=== PATIENT | male | born 1935 | race Hispanic/Latino ===

== ENCOUNTER 2018-07-20 15:06 | Emergency (ER) | payer MEDICARE, MEDICAID ==
[2018-07-20 16:29] LABS: #Eosinphils 0.5 thou/uL (0.0-0.7); #Lymphocytes 3.2 thou/uL (1.20-3.40); #Monocytes 0.6 thou/uL (0.11-0.59); #Neutrophils 2.7 thou/uL (1.40-6.50); %Basophils 0.5 % (0.0-1.0); %Eosinophils 6.7 % (0.0-10.0); %Lymphocytes 45.4 % (21.0-51.0); %Monocytes 8.5 % (0.0-10.0); %Neutrophils 38.9 % (42.0-75.0); Hemoglobin 13.3 g/dL (14.0-18.0); Mean Corpuscular HGB CONC 33.2 g/dL (32.0-36.0); Mean Corpuscular Hemoglobin 32.2 pg (27.0-31.0); Mean Corpuscular Volume 96.9 fL (78.0-98.0); Mean Platelet Volume 8.8 fL (7.4-10.4); Platelet Count 172 thou/uL (130-400); Red Blood Cell (RBC) Count 4.15 mill/uL (4.70-6.10)
[2018-07-20 16:35] LABS: Bilirubin Small (Negative); Blood, Urine Negative (Negative); Clarity CLEAR (Clear); Glucose, Urine (Dipstick) Negative (Negative); Leukocyte Negative (Negative); Nitrite Negative (Negative); Protein, Urine (Dipstick) Negative (Neg-Trace); Specific Gravity, Urine 1.025 (1.002-1.036)
[2018-07-20 16:47] LABS: ALT (SGPT) 12 U/L (8-55); AST (SGOT) 14 U/L (5-34); Albumin 3.5 g/dL (3.4-4.8); Alkaline Phosphatase 80 U/L (40-150); Anion Gap 14 mmol/L (10-20); BUN (Urea Nitrogen) 29 mg/dL (8.4-25.7); Bilirubin, Total 0.5 mg/dL (0.2-1.2); Calc. Creatinine Clearance 0 mL/min (70-130); Calcium 9.2 mg/dL (7.8-10.44); Carbon Dioxide 24 mmol/L (23-31); Chloride 109 mmol/L (98-107); Estimated GFR-MDRD 44; Globulin 2.9 g/dL (2.4-3.5); Glucose 107 mg/dL (83-110); Potassium 4.5 mmol/L (3.5-5.1); Protein, Total 6.4 g/dL (5.8-8.1); Sodium 142 mmol/L (136-145)
== END 2018-07-20 17:23 | disposition home or self-care (01) ==
LOC: ERS 15:06
DX: K59.00 Constipation, unspecified (principal); I10 Essential (primary) hypertension; F03.90 Unspecified dementia, unspecified severity, without behavioral disturbance, psychotic disturbance, mood disturbance, and anxiety; Z87.891 Personal history of nicotine dependence
CPT/HCPCS: 36415; 80053; 81003; 85025; 99283

== ENCOUNTER 2018-08-10 11:33 | Inpatient (IN) | payer MEDICARE, MEDICAID ==
[~2018-08-10 11:33] MED LIST: ISOVUE-370 76%-LOCM 1 ML ONE
--- NOTE | 2018-08-10 12:04 | RAD ---
XR Chest 1 View Portable History: Chest pain. Stroke alert. Comparison: None. Findings: Mild increased peripheral interstitial interstitial markings. No pneumothorax. No effusion. No acute osseous abnormality. Cardiac size is normal. Impression: Chronic peripheral scarring. No acute intrathoracic abnormality.
[2018-08-10 12:18] LABS: #Basophils 0.1 thou/uL (0.0-0.2); #Eosinphils 0.3 thou/uL (0.0-0.7); #Lymphocytes 1.9 thou/uL (1.20-3.40); #Monocytes 0.5 thou/uL (0.11-0.59); #Neutrophils 8.1 thou/uL (1.40-6.50); %Basophils 0.5 % (0.0-1.0); %Eosinophils 2.7 % (0.0-10.0); %Lymphocytes 17.2 % (21.0-51.0); %Monocytes 4.4 % (0.0-10.0); %Neutrophils 75.3 % (42.0-75.0); Hemoglobin 15.1 g/dL (14.0-18.0); Mean Corpuscular HGB CONC 33.9 g/dL (32.0-36.0); Mean Corpuscular Hemoglobin 32.8 pg (27.0-31.0); Mean Platelet Volume 8.5 fL (7.4-10.4); Platelet Count 220 thou/uL (130-400); RBC Distribution Width 12.9 % (11.5-14.5); Red Blood Cell (RBC) Count 4.59 mill/uL (4.70-6.10); White Blood Cell (WBC) Count 10.8 thou/uL (4.8-10.8)
--- NOTE | 2018-08-10 12:22 | CT ---
CT BRAIN NONCONTRAST: DATE: 08/10/2018 HISTORY: 83-year-old male with acute stroke symptoms: Dysarthria and left upper extremity weakness Stroke alert protocol extension [id number] called called, but no answer COMPARISON: None FINDINGS: There is no evidence of acute intra-axial or extra-axial hemorrhage. There is no midline shift or any other mass effect. There is no extra-axial fluid collection. There is no evidence of obstructive hydrocephalus. Calvarium is intact. There is a moderate size region of encephalomalacia and gliosis i nvolving the right occipital lobe. There are numerous tiny old lacunar infarctions in the bilateral thalami, midbrain, jose antonio, basal ganglia, and internal and external capsules. There is diffuse brain pa renchymal volume loss. There are low attenuation areas in the white matter. These are nonspecific, but in a patient of this age, they are probably chronic ischemic white matter changes due to microvas cular atherosclerosis. IMPRESSION: 1) No acute intracranial findings. 2) moderate-sized old infarction in the right posterior cerebral artery territory. 3) large number of tiny old lacunar infarctions in the bilateral corpus striatum, thalami, and brains tem. 4) involutional changes and chronic ischemic white matter changes.
[2018-08-10 12:24] LABS: PTT 27.7 SEC (22.9-36.1); Prothrombin Time 13.7 SEC (12.0-14.7)
[2018-08-10 12:41] LABS: ALT (SGPT) 15 U/L (8-55); AST (SGOT) 15 U/L (5-34); Albumin 3.9 g/dL (3.4-4.8); Alkaline Phosphatase 90 U/L (40-150); Anion Gap 14 mmol/L (10-20); BUN (Urea Nitrogen) 24 mg/dL (8.4-25.7); Bilirubin, Total 0.6 mg/dL (0.2-1.2); CK (CPK) 115 U/L (30-200); Calc. Creatinine Clearance 0 mL/min (70-130); Calcium 9.7 mg/dL (7.8-10.44); Carbon Dioxide 25 mmol/L (23-31); Chloride 104 mmol/L (98-107); Estimated GFR-MDRD 43; Globulin 3.1 g/dL (2.4-3.5); Glucose 142 mg/dL (83-110); Sodium 139 mmol/L (136-145)
--- NOTE | 2018-08-10 12:50 | CT ---
CT ANGIOGRAM BRAIN WITH CONTRAST CT ANGIOGRAM NECK WITH CONTRAST: DATE: 08/10/2018 HISTORY: 83-year-old male with acute stroke symptoms: Dysarthria and left-sided weakness. This stroke alert protocol report called to Dr. Gay of the emergency Department at 12:46 PM on 12/2018 TECHNIQUE: After IV contrast injection, arterial bolus chasing technique scan performed from ivy to vertex of head Coronal and sagittal 3-D MIP reconstructions. FINDINGS: There is a tiny 3 mm intracranial aneurysm from the distal portion of the A2 segment of the left ante rior cerebral artery, which crosses over to the right side because of tortuosity. Atherosclerotic irregularity of [place] arteries. Heavy atherosclerotic calcification of carotid siphons ro ing it difficult to evaluate luminal caliber. Otherwise no high-grade focal short segment stenosis. Moderate stenosis of left MCA. No thrombosis or occlusion of M1 segments of MCA's. Incidental finding of fenestrated basilar artery. No occlusion or high-grade short segment acquired stenosis of bilateral vertebral arteries, brachiocephalic artery, bilateral subclavian arteries, bilateral common carotid arteries,. Heavy atherosclerotic calcified plaque at bilateral carotid bulbs severe stenosis, estimated 75-80% at origin of right internal carotid. No high-grade stenosis at origin of l eft internal carotid. Estimated focal 50% stenosis at the distal common carotid on the left at the carotid bulb. IMPRESSION: 1) no middle cerebral artery M1 segment thrombosis. 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 3) severe stenosis at origin of right internal carotid. 4) extensive atherosclerotic disease of all vessels of neck.
[2018-08-10] MEDS ORDERED: Aspirin Chewable 81 MG TAB ONE (14:28)
[2018-08-10 16:03] VITALS: BMI 27.8
[2018-08-10] MEDS ORDERED: Ondansetron ODT 4 MG TAB PO PRN (16:10)
[2018-08-10] MEDS ORDERED: Acetaminophen 325 MG TAB PO PRN (16:10)
[2018-08-10] MEDS ORDERED: Labetalol HCl 100 MG/20 ML VIAL SLOW IVP PRN (16:16)
[2018-08-10] MEDS ORDERED: hydrALAZINE 20 MG/ML VIAL SLOW IVP PRN (16:16)
--- NOTE | 2018-08-10 17:42 | HP ---
PRIMARY CARE PROVIDER: Selin De Paz. Referred to the [facility] by [facility] for a stroke. HISTORY OF PRESENT ILLNESS: The history obtained from the daughter, who is at bedside. The patient is Albanian-speaking only, has dementia and is a poor historian to boot. The patient walks with a cane. He came to breakfast this morning, was eating his breakfast and all of a sudden while before he finished breakfast, he just collapsed. He was following directions poorly. He was sleepy like, no jerking or seizure activity. After daughter arrived, he still responded very slowly. He was pale initially. His blood pressure was 74/ 64, 68 of pulse with 124 blood sugar. revenue director arrive. He was brought to the hospital by the daughter, Megan Upton states that he is in his normal mental status at the present time. PAST MEDICAL HISTORY: CVA 7 years ago x2. He was left with a loss of vision in his left eye, otherwise normal. He has dementia on multiple medications, hypertension, benign prostatic hypertrophy. CURRENT MEDICATIONS: 1. Meloxicam 7.5 mg a day. 2. Flomax 0.4 mg a day. 3. Donepezil 5 mg a day. 4. Memantine 10 mg twice a day. 5. Lisinopril 20 mg a day. 6. Lorazepam 0.5 mg twice a day. 7. Avodart 0.5 mg a day. ALLERGIES: NO KNOWN DRUG ALLERGIES. PAST SURGICAL HISTORY: He has had inguinal hernia repair. FAMILY HISTORY: No strokes. No diabetes mellitus or coronary artery disease. SOCIAL HISTORY: He is , but he and his live in different locations due to medical problems. He is DNR status DNAR status, confirmed by Megan Blank Alexsandra, his daughter. She states they have the appropriate documentation. No tobacco. No alcohol. REVIEW OF SYSTEMS: Unobtainable because of his dementia, etc. He is awake, follows directions poorly. PHYSICAL EXAMINATION: VITAL SIGNS: His blood pressure in the ER ranged from 129/68 to 139/108, blood sugar was 128, his pulse is 87 to 94, respirations 16, and temperature 97.9. HEENT: Examination of his head, eyes, ears, nose, and throat revealed minimal pupillary response at best. Pupils were equal and round. Extraocular movements were grossly intact. Sclerae are white. Tympanic membranes are clear. Nose is clear. Mouth is adequate oral hygiene, moist. NECK: No jugular venous distention, adenopathy, or thyromegaly. CHEST: Clear to auscultation and percussion. HEART: Regular rate and rhythm. First and second heart sounds were clear. No murmurs or gallops were appreciated. ABDOMEN: Soft. Bowel sounds are normal. No hepatosplenomegaly. No masses or rebound. EXTREMITIES: No cyanosis, clubbing, or edema. PULSES: Carotid, radial, femoral, and dorsalis pedis pulses symmetric. SKIN: Warm and dry. LYMPHATIC SURVEY: Reveals no tender or swollen lymph nodes in the neck, groin, or under his arms. NEUROLOGIC: He is blind in the left eye. Minimal pupillary reflexes. Face is symmetric. Neurological exam of his extremities was done difficulty, but his toes were neutral. His strength appeared to be symmetrical. Deep tendon reflexes appeared to be symmetrical. LABORATORY DATA: CBC was unremarkable with hemoglobin 15.1, white count of 10.8 , platelet count of 229,000. INR was 1.0. Comprehensive metabolic profile had an elevated creatinine at 1.56, consistent with chronic kidney disease, stage 3. Blood sugar was 124. Liver profile was normal. Lytes were normal. His all laboratory done 10/21/2017 shows creatinine 1.37, confirming chronic kidney disease stage 3 as opposed to acute kidney injury. His brain CT revealed no acute findings. There is old right posterior cerebellar artery stroke and some lacunar infarctions, but this explains his stroke with loss of vision. CT was reviewed by me. Chest x-ray, no cardiomegaly, CHF, or infiltrate reviewed by me. CT of the [place], he has moderate stenosis of the left, middle cerebral artery. He has severe stenosis of the origin the right internal carotid. ASSESSMENT: 1. stroke, thrombotic. 2. Severe right internal carotid artery stenosis. 3. History of cerebrovascular accident in the past with blindness of the left eye. 4. Chronic kidney disease, stage 3. 5. Hypertension. 6. BPH. PLAN: 1. Aspirin. 2. MRI of the brain. After obtaining the MRI, we will obtain a vascular surgery consult for right carotid endarterectomy. I have discussed this in the DNAR status with Megan Hallman, his daughter. She expresses understanding of our conversations. Job ID: [id number] [facility]
[2018-08-10] MEDS ORDERED: Tamsulosin HCl 0.4 MG CAP PO SCH (21:00)
[2018-08-11 05:27] LABS: #Eosinphils 0.4 thou/uL (0.0-0.7); #Lymphocytes 3.1 thou/uL (1.20-3.40); #Monocytes 0.6 thou/uL (0.11-0.59); #Neutrophils 4.5 thou/uL (1.40-6.50); %Basophils 0.5 % (0.0-1.0); %Eosinophils 5.1 % (0.0-10.0); %Lymphocytes 35.7 % (21.0-51.0); %Monocytes 6.5 % (0.0-10.0); %Neutrophils 52.1 % (42.0-75.0); Hemoglobin 13.7 g/dL (14.0-18.0); Mean Corpuscular HGB CONC 33.8 g/dL (32.0-36.0); Mean Corpuscular Hemoglobin 32.7 pg (27.0-31.0); Mean Corpuscular Volume 96.7 fL (78.0-98.0); Mean Platelet Volume 8.6 fL (7.4-10.4); Platelet Count 203 thou/uL (130-400); Red Blood Cell (RBC) Count 4.18 mill/uL (4.70-6.10); White Blood Cell (WBC) Count 8.6 thou/uL (4.8-10.8)
[2018-08-11 05:50] LABS: Anion Gap 12 mmol/L (10-20); BUN (Urea Nitrogen) 25 mg/dL (8.4-25.7); Calc. Creatinine Clearance 39 mL/min (70-130); Calcium 9.1 mg/dL (7.8-10.44); Carbon Dioxide 22 mmol/L (23-31); Cardiac Risk 4.9 (Less than 4.5); Chloride 106 mmol/L (98-107); Cholesterol 167 mg/dl (< 200 Desired); Estimated GFR-MDRD 49; Glucose 90 mg/dL (83-110); HDL Cholesterol 34 mg/dL (>60 Neg Risk); LDL Cholesterol, Calculated 112 mg/dL; Potassium 4.8 mmol/L (3.5-5.1); Sodium 135 mmol/L (136-145); Triglycerides 106 mg/dL (Less than 150)
[2018-08-11] MEDS ORDERED: Aspirin 325 mg Enteric Coated Tablet PO SCH (09:00)
[2018-08-11] MEDS ORDERED: Lisinopril 20 MG TAB PO SCH (09:00)
[2018-08-11 11:36] VITALS: TEMP 97.5
--- NOTE | 2018-08-11 11:48 | PDOC.PN ---
- Subjective Encounter Start Date: 08/11/18 Encounter Start Time: 11:30 Mr. Whaley was seen today in follow-up of syncope. His daughter is at bedside, and says he seems to be about baseline. His left side of the face is a bit drooped, but she can not remember if it was like this before. - Objective Resuscitation Status - Order Detail: 08/10/18 16:43 Resuscitation Status Routine Resuscitation Status: FULL: Full Resuscitation MAR Reviewed: Yes Vital Signs & Weight: Vital Signs (12 hours) Temp Pulse Pulse Resp BP BP BP 08/11/18 11:36 97.5 F L 79 16 122/61 08/11/18 09:05 72 111/59 L 08/11/18 08:14 126/78 08/11/18 07:48 97.6 F 77 16 126/78 08/11/18 04:10 98.1 F 86 16 96/63 08/10/18 23:47 98.8 F 92 18 137/75 Pulse Ox 08/11/18 11:36 97 08/11/18 09:05 08/11/18 08:14 96 08/11/18 07:48 96 08/11/18 04:10 94 L 08/10/18 23:47 93 L Weight Weight 147 lb I&O: 08/10/18 08/11/18 08/12/18 06:59 06:59 06:59 Intake Total 340 Balance 340 Result Diagrams: 08/11/18 05:00 08/11/18 05:00 Additional Labs: Accuchecks 08/10/18 11:45 POC Glucose 124 H Phys Exam - Physical Examination HEENT: PERRLA, sclera anicteric Respiratory: no wheezing, no rales, no rhonchi, clear to auscultation bilateral Cardiovascular: RRR, no significant murmur, no rub Gastrointestinal: soft, non-tender, no distention, positive bowel sounds Musculoskeletal: no edema, pulses present Neurological: normal sensation, moves all 4 limbs + left upper and lower extremity neglect, and mild left facial droop Dx/Plan (1) Syncope Code(s): R55 - SYNCOPE AND COLLAPSE Status: Acute (2) Hypertension Code(s): I10 - ESSENTIAL (PRIMARY) HYPERTENSION Status: Chronic (3) CKD (chronic kidney disease), stage III Code(s): N18.3 - CHRONIC KIDNEY DISEASE, STAGE 3 (MODERATE) Status: Chronic - Plan * Possible CVA- await MRI results * CTA- demonstrated significant stenosis at the origin of the right ICA- will consult NS * HTN- blood pressure is stable * CKD- stable.
[2018-08-11 12:29] VITALS: BP 125/60
--- NOTE | 2018-08-11 14:20 | CON ---
DATE OF CONSULTATION: HISTORY OF PRESENT ILLNESS: This is an 83-year-old gentleman with dementia, followed by Dr. Katy De Paz at the [facility]. He was at breakfast yesterday, sitting in the chair and one of his granddaughters walked past him and noticed his head was tilted to the side and he was very lethargic. She called her mother, who then checked the blood pressure and found it to be about 70 with a normal blood sugar, and subsequent ER blood pressure was about 120. He would not open his eyes on command, but was trying to speak with yes or no answers and nodding of his head. The family did not notice lateralizing symptoms either right or left-sided weakness. He evidently has had a previous occipital stroke when the family says he cannot see out of his left eye and will turn his whole head and body when he wants to look to the left. PAST MEDICAL HISTORY: Includes hypertension, dementia, and some obstructive lower urinary tract symptoms. He has no cardiac history. SOCIAL HISTORY: He is , but does not live with his . He is accompanied by his daughter today. MEDICATIONS: Prior to admission included; 1. Meloxicam. 2. Flomax. 3. Donepezil. 4. Memantine. 5. Lisinopril 20. 6. Lorazepam for anxiety related to his dementia. 7. Avodart. ALLERGIES: NONE KNOWN. PAST SURGICAL HISTORY: Inguinal hernia repair. PHYSICAL EXAMINATION: GENERAL: He is an elderly gentleman, who is eating his lunch at the present time and is focused on that. He eats using his right hand for utensils. He occasionally coughs while eating. He is constantly chewing. NECK: He has significant cervical arthritis with limitation in extension and flexion. CARDIAC: Distant heart sounds. No murmurs. LUNGS: Clear to auscultation anteriorly. ABDOMEN: Nontender. EXTREMITIES: He has no peripheral edema. He has no palpable pedal pulses. Extremity strength, he can push, dorsiflex and plantar flex his feet without any discernible weakness. Upper extremity strength appears intact. He follows commands, but is not really speaking at this time. ASSESSMENT AND PLAN: I have reviewed his CT scan and he does have bilateral calcified plaque in his carotid bulbs and internal carotid arteries. The right internal carotid artery does appear to have severe stenosis at least in two views. At this time, we will write the results of the MRI study. We will discuss further whether surgical intervention is appropriate for him after I see the MRI scan. In any event, this would be considered elective surgery and he could be discharged home to follow up with me for scheduling if we elect to do the surgical intervention. Job ID: [id number]
--- NOTE | 2018-08-11 16:01 | MRI ---
Brain MRI without contrast: 08/11/2018 COMPARISON: None HISTORY: Dementia, stroke, altered mental status TECHNIQUE: Multiplanar multisequence MR imaging of the brain is obtained without contrast FINDINGS: The diffusion weighted imaging demonstrates no evidence for acute infarction. The axial gradient echo imaging demonstrates scattered foci of blooming artifact within the basal latia glia bilaterally and within the bilateral cerebellar hemispheres, suggesting foci of chronic microhemorrhage on the basis of remote ischemia or hypertension. Nonspecific mastoid effusion noted on the left. Motion limits detailed assessment, particularly on the axial T2-weighted sequence. Arterial flow voids at the axial level of the skull base appear grossly unremarkable on the T2-weight ed imaging. There is significant diffuse cerebral volume loss with associated prominence of the CSF containing sp aces. There is extensive periventricular, deep, and subcortical white matter hypodensity, evidence of small vessel disease. Encephalomalacia within the occipital lobe on the right is consistent with a remote right WELDER FITTER HELPER infarction. IMPRESSION: Chronic findings as detailed above. No evidence for acute infarction.
--- NOTE | 2018-08-11 18:07 | CON ---
DATE OF CONSULTATION: 08/11/2018 CONSULTING PHYSICIAN: Hospitalist Service. IMPRESSION: Near syncopal episode. PLAN: Discharge at your discretion. HISTORY OF PRESENT ILLNESS: Mr. Whaley is an 83-year-old gentleman, who was at home eating breakfast and at the table. His daughter reports that he suddenly slumped over, looking quite weak all over. He never lost consciousness, but would respond to them in a very weak fashion. His color turned quite pale. She checked his blood pressure and found it to be 60/50. EMS was called and he was brought in. He had a CT of the brain, which showed an old right posterior cerebral artery stroke. His CT angiogram showed a 70% to 80% stenosis on the right and a 50% on the left. There is a 3 mm left anterior cerebral artery aneurysm present. He has returned to his baseline. He had an MRI since admission, which showed chronic ischemic changes, but no acute stroke. LABORATORY STUDIES: Included a CBC, coags, and chemistry panel all of which were unremarkable. His cholesterol ratio was 4.9. PAST MEDICAL HISTORY: Hypertension and diabetes. ALLERGIES: NONE. MEDICATIONS: Medication list was reviewed. FAMILY HISTORY: Noncontributory. REVIEW OF SYSTEMS: Ten-system review of systems is otherwise negative. PHYSICAL EXAMINATION: GENERAL: He is a thin elderly gentleman, sitting in the bed, in no acute distress. VITAL SIGNS: Blood pressure 111/59 while lying down. Temperature 97.5, pulse 79, respirations 16. HEENT: Pupils are equal and reactive. Conjunctivae clear. Oropharynx clear. NECK: Supple. No lymphadenopathy. EXTREMITIES: No cyanosis, clubbing, or edema. NEUROLOGIC: He is alert and cooperative. He followed commands appropriately. His speech is fluent in Samoan. There is no dysarthria present. Cranial nerves are intact. Motor exam showed equal strength with antigravity strength bilaterally. There is no fix or drift. No tremor or dysmetria is present. Sensation is intact to light touch. SUMMARY: This is an elderly gentleman, who presented with a near syncopal episode documented low blood pressure. There are no acute neurologic issues found. Given his age and overall picture, I would not recommend anything be done with the right carotid stenosis other than maximum medical therapy. I will continue aspirin and a statin. Job ID: [id number]
--- NOTE | 2018-08-12 04:59 | DIS ---
DATE OF ADMISSION: 08/10/2018 DATE OF DISCHARGE: 08/11/2018 PRIMARY CARE PHYSICIAN: Selin De Paz, DRAFTSPERSON-C DISCHARGE DIAGNOSES: 1. Altered mental status, possible due to hypotension. 2. Cerebrovascular disease. 3. Hypertension. 4. BPH. 5. Dementia. DISCHARGE MEDICATIONS: These will be the same and include: 1. Flomax 0.4 mg daily. 2. [place]-3 fish oil one capsule daily. 3. Namenda 10 mg twice daily. 4. Meloxicam 7.5 mg daily. 5. Lorazepam 0.5 mg q.12. 6. Lisinopril 20 mg daily. 7. Iron sulfate 325 mg daily. 8. Dutasteride 0.5 mg daily. 9. Aricept 5 mg at bedtime. 10. Vitamin D3 of 1000 units daily. 11. Sertraline 10 mg daily. 12. Aspirin 81 mg a day. PROCEDURES DONE DURING THE ADMISSION: The patient had a CT scan of the brain, which was negative for any acute findings. There was a moderate-sized old infarct in the right posterior cerebral artery territory and a large number of tiny lacunar infarcts in the bilateral corpus striatum to rami and brainstem. The patient also had an MRI of the brain in which there was chronic findings, but no evidence of any acute infarct. The patient also had a CT angio of the neck and [place], showing severe stenosis at the origin of the right internal carotid artery. CODE STATUS: Full code. ALLERGIES: NO KNOWN DRUG ALLERGIES. HOSPITAL COURSE: Mr. Whaley is a pleasant 83-year-old gentleman, who presented to the emergency room after he suffered a syncopal episode at home. It is thought that this was likely related to hypotension. However, there was concern for possible stroke and CT angio was done as well as CT of the brain. He was known to have significant stenosis at the origin of the right internal carotid artery. For this reason, Vascular Surgery was consulted and he suggested that the patient can have this further evaluated as an outpatient since the MRI results were negative. The patient was clinically stable at the time of discharge and as such will be discharged home today, and to have close followup with Dr. Ross in approximately 1 to 2 weeks and also with Selin De Paz. Job ID: [id number]
== END 2018-08-11 18:31 | disposition home health service (06) | DRG 316 ==
LOC: EDBD → ERS 11:33 → 2SE 14:10 → OBSVTOIN 16:10 → MERGE 16:10
PROVIDERS: ADMIT Internal Medicine; ATTEND Internal Medicine
DX: I95.9 Hypotension, unspecified (principal); I65.21 Occlusion and stenosis of right carotid artery; I69.398 Other sequelae of cerebral infarction; I12.9 Hypertensive chronic kidney disease with stage 1 through stage 4 chronic kidney disease, or unspecified chronic kidney disease; N18.3 Chronic kidney disease, stage 3 (moderate); N40.0 Benign prostatic hyperplasia without lower urinary tract symptoms; F03.90 Unspecified dementia, unspecified severity, without behavioral disturbance, psychotic disturbance, mood disturbance, and anxiety; E11.22 Type 2 diabetes mellitus with diabetic chronic kidney disease
CPT/HCPCS: 36415; 36416; 70450; 70496; 70498; 70551; 71045; 80048; 80053; 80061; 82550; 84484; 85025; 85610; 85730; 93005

== ENCOUNTER 2018-11-27 12:01 | Observation (INO) | payer MEDICARE, MEDICAID ==
--- NOTE | 2018-11-27 13:09 | RAD ---
Exam: Chest one view HISTORY:Weakness. Altered mental status. Baseline dementia Comparison: 08/10/2018 FINDINGS: Cardiac silhouette: Normal Aorta: Atherosclerosis and elongation of the aorta Pulmonary vessels: Normal Costophrenic angles: Clear LUNGS: Diminished lung volumes. Chronic changes. No masses or consolidation. Pneumothorax: None Osseous abnormalities: None IMPRESSION: 1. Atherosclerosis and elongation aorta. 2. Diminished lung volume with chronic changes.
--- NOTE | 2018-11-27 13:50 | CT ---
HEAD CT WITHOUT CONTRAST: Date: 11/27/18 COMPARISON: 08/10/18. HISTORY: Weakness, shakiness, altered mental status. TECHNIQUE: Axial CT imaging at 5 mm intervals from vertex through skull base without contrast. FINDINGS: The imaged paranasal sinuses and mastoid air cells are well aerated. No displaced calvarial fracture is noted. There is atherosclerotic calcification of the cavernous carotid arteries and distal vertebral arterie s. There is moderate diffuse cerebral volume loss with associated prominence of the CSF-containing space s. Extensive periventricular, deep, and subcortical white matter hypodensity is present, evidence of small vessel disease. Stable prior lacunar infarctions is noted within the basal ganglia and thalamus on the left. There is evidence of prior posterior right occipital infarction. IMPRESSION: Extensive chronic findings as detailed above. No intracranial hemorrhage. POS: OFF
[2018-11-27 13:52] LABS: #Basophils 0.1 thou/uL (0.0-0.2); #Eosinphils 0.7 thou/uL (0.0-0.7); #Lymphocytes 3.3 thou/uL (1.20-3.40); #Monocytes 0.5 thou/uL (0.11-0.59); #Neutrophils 5.4 thou/uL (1.40-6.50); %Basophils 0.6 % (0.0-1.0); %Eosinophils 6.6 % (0.0-10.0); %Monocytes 5.2 % (0.0-10.0); %Neutrophils 54.6 % (42.0-75.0); Hemoglobin 14.4 g/dL (14.0-18.0); Mean Corpuscular HGB CONC 33.8 g/dL (32.0-36.0); Mean Corpuscular Volume 97.6 fL (78.0-98.0); Mean Platelet Volume 8.7 fL (7.4-10.4); Platelet Count 201 thou/uL (130-400); RBC Distribution Width 12.7 % (11.5-14.5); Red Blood Cell (RBC) Count 4.37 mill/uL (4.70-6.10); White Blood Cell (WBC) Count 9.9 thou/uL (4.8-10.8)
[2018-11-27 14:14] LABS: ALT (SGPT) 18 U/L (8-55); AST (SGOT) 44 U/L (5-34); Albumin 3.5 g/dL (3.4-4.8); Alkaline Phosphatase 87 U/L (40-110); Anion Gap 13 mmol/L (10-20); BUN (Urea Nitrogen) 31 mg/dL (8.4-25.7); Calc. Creatinine Clearance 0 mL/min (70-130); Carbon Dioxide 26 mmol/L (23-31); Chloride 104 mmol/L (98-107); Estimated GFR-MDRD 47; Globulin 2.9 g/dL (2.4-3.5); Glucose 95 mg/dL (83-110); Magnesium 1.9 mg/dL (1.6-2.6); Potassium 4.5 mmol/L (3.5-5.1); Protein, Total 6.4 g/dL (5.8-8.1); Sodium 138 mmol/L (136-145)
[2018-11-27] MEDS ORDERED: Senokot S 8.6-50 MG TAB PO PRN (16:44)
[2018-11-27] MEDS ORDERED: Acetaminophen 325 MG TAB PO PRN (16:44)
[2018-11-27] MEDS ORDERED: Sodium Chloride 0.9% 1,000 ML IV SCH (16:45)
[2018-11-27 18:19] VITALS: BMI 27.6
[2018-11-27] MEDS ORDERED: Meloxicam 7.5 MG TAB PO PRN (18:46)
[2018-11-27] MEDS ORDERED: Lorazepam 0.5 MG TAB PO PRN (18:46)
--- NOTE | 2018-11-27 18:58 | HP ---
PRIMARY CARE PHYSICIAN: Selin De Paz, IS MANAGER-C CHIEF COMPLAINT: Weakness to one side. HISTORY OF PRESENT ILLNESS: Mr. Whaley is an 83-year-old man, who was brought in to his primary care office today after daughter noticed yesterday that he had profound weakness. Normally, she says he helps her get him up, stand him up, and he is able to help her get him undressed and shower, and yesterday, he was unable to do this. She says that usually when he walks with a walker, he slumps over a little, but she said he was profoundly slumping over the walker to walk in. When he was sitting in a chair, he was on to the left side, and when she says she tries to straighten him up, he tells her to stop doing that because he feels like he is going to fall. 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 He also had BPH. Workup here with a creatinine of 1.44 and BUN of 31, which is pretty much at baseline for this patient. Chest x-ray shows atherosclerosis, elongated aorta, diminished lung volume with chronic changes. The patient also had a brain CT today, which showed extensive chronic findings, stable prior lacunar infarction noted within the basal ganglia and thalamus on the left, evidence of a prior posterior right occipital infarction. The patient was seen here in August for similar complaints and was recommended to follow up with Dr. Ross for some stenosis that was noted in the left carotid. Daughter reports that they did that about a month ago and Dr. Ross said that the stenosis is not remarkable enough to do surgery. The patient will be admitted to the telemetry observation unit for further management. Daughter reports interest in potential rehab if he is a candidate to help him get back to his baseline and being able to help her and use a walker and get around the house. PAST MEDICAL HISTORY: 1. 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 2. Dementia, on multiple medications. 3. Hypertension. 4. Benign prostatic hypertrophy. ALLERGIES: NO KNOWN DRUG ALLERGIES. CURRENT MEDICATIONS: Per the ER, this will have to be verified. 1. Fish oil 1000 mg 1 cap once a day. 2. Aspirin 81 mg 1 tab once a day. 3. Vitamin D3 of 1000 units 1 cap once a day. 4. Colace 1 cap once a day. 5. Lorazepam 0.5 mg p.o. b.i.d. 6. Cetirizine 10 mg p.o. once time at bedtime. 7. Meloxicam 7.5 mg p.o. as needed. 8. Donepezil 10 mg p.o. once a day. 9. Ferrous sulfate 300 mg p.o. once a day. 10. Flomax 0.4 mg p.o. once a day. 11. Namenda 10 mg p.o. once a day. 12. Avodart 0.5 mg p.o. once a day. REVIEW OF SYSTEMS: Unable to obtain based on the patient's baseline mental status. He was unable to answer any questions. History was provided by his daughter who is at the bedside. PHYSICAL EXAMINATION: VITAL SIGNS: Blood pressure 142/68, pulse is 82, respirations 16, temp is 98.4, pO2 sats are 100% on room air. CONSTITUTIONAL: He appears nontoxic. He is not oriented to person, place, or time. Does answer questions in Cuban when asked by his daughter. She reports this is baseline for him. HEENT: Head is atraumatic and normocephalic. Eyes, pupils are equally round and reactive to light. There is no nystagmus. Eyelids are normal to inspection. E and T, missing teeth. Mucous membranes are dry. NECK: Normal range of motion. No tenderness. RESPIRATORY/CHEST: He has mildly diminished expiratory breath sounds. There are no findings of any respiratory distress. CARDIOVASCULAR: Regular heart rate and rhythm. Heart sounds are normal. ABDOMEN: Nontender. Bowel sounds are heard. BACK: Normal range of motion. There is no tenderness on palpation. EXTREMITIES: Upper extremity; normal inspection, normal range of motion. Sensation is intact. Radial pulses are normal. Lower extremity; pedal pulses are normal. There is bilateral weakness to lower extremities. NEUROLOGIC: Neuro exam was difficult since the patient really did not follow questions appropriately. The patient is not oriented to person, place, and time. Baseline per his family. SKIN: Warm, dry, normal in color. PSYCH: At baseline per family. DIAGNOSTIC DATA: EKG, normal sinus rhythm, beats per minute 67, complete right bundle-branch block, ST elevation in lead III, axis is normal. PLAN/ASSESSMENT: 1. Symptoms concerning for potential stroke. We will obtain an MRI of the brain without contrast. I do not see an echocardiogram in the chart on the last year, so we will obtain that. Carotids were done on the last admission and has been followed up with Dr. Ross within the last month. We will ask PT/OT to evaluate. We will also ask the Inpatient Rehab Team to evaluate for possible placement. Aspirin will be given. 2. Dehydration. Normal saline at 75 mL per hour per 1 bag. We will recheck values in the morning. 3. Chronic kidney disease stage 3. This appears stable. We will monitor and recheck in the morning. 4. Hypertension. Restart home medications. Trend. 5. History of dementia. We will restart home medications. 6. The patient is a full code. This was discussed with his daughter, who is a surrogate decision maker, and she said initially he was a DNR, but after further discussion, she believes that she would like to make him a full code and then if prognosis deteriorate to the point where she needed to make him a DNR, she would be okay with that. 7. Deep venous thrombosis and gastrointestinal prophylaxis have been started. 8. Case discussed with who agrees with plan. 9. Hospital case depend on clinical findings. Job ID: [id number]
[2018-11-27 19:10] LABS: Troponin I 0.025 ng/mL (< 0.028)
[2018-11-27 20:36] LABS: Bacteria/HPF None Seen HPF (None Seen); Bilirubin Negative (Negative); Blood, Urine Negative (Negative); Clarity Clear (Clear); Glucose, Urine (Dipstick) Normal (Negative); Leukocyte Negative Leu/uL (Negative); Nitrite Negative (Negative); Protein, Urine (Dipstick) Negative (Neg-Trace); RBC/HPF 0-3 HPF (0-3); Squamous Epithelial None Seen HPF (0-3); Urobilinogen Normal mg/dL (Less than 2); WBC/HPF 0-3 HPF (0-3)
[2018-11-27 20:39] LABS: Urine Culture Reflex No No
[2018-11-27] MEDS ORDERED: Loratadine 10 MG TAB PO SCH (21:00)
[2018-11-27] MEDS ORDERED: Aspirin 81 mg Enteric Coated Tablet PO SCH (21:00)
[2018-11-27] MEDS ORDERED: Donepezil HCl 5 MG TAB PO SCH (21:00)
[2018-11-27 21:31] LABS: Troponin I 0.019 ng/mL (< 0.028)
[2018-11-27] MEDS: Famotidine 20 MG TAB PO SCH (21:35)
[2018-11-28 04:22] VITALS: TEMP 98.1
[2018-11-28 05:56] LABS: #Eosinphils 0.8 thou/uL (0.0-0.7); #Lymphocytes 2.4 thou/uL (1.20-3.40); #Monocytes 0.5 thou/uL (0.11-0.59); #Neutrophils 4.6 thou/uL (1.40-6.50); %Basophils 0.4 % (0.0-1.0); %Eosinophils 9.2 % (0.0-10.0); %Lymphocytes 28.7 % (21.0-51.0); %Neutrophils 55.7 % (42.0-75.0); Hemoglobin 13.5 g/dL (14.0-18.0); Mean Corpuscular HGB CONC 33.8 g/dL (32.0-36.0); Mean Corpuscular Hemoglobin 32.9 pg (27.0-31.0); Mean Corpuscular Volume 97.3 fL (78.0-98.0); Mean Platelet Volume 8.9 fL (7.4-10.4); Platelet Count 182 thou/uL (130-400); RBC Distribution Width 12.6 % (11.5-14.5); White Blood Cell (WBC) Count 8.3 thou/uL (4.8-10.8)
[2018-11-28 06:16] LABS: Anion Gap 14 mmol/L (10-20); BUN (Urea Nitrogen) 22 mg/dL (8.4-25.7); Calc. Creatinine Clearance 53 mL/min (70-130); Calcium 8.3 mg/dL (7.8-10.44); Carbon Dioxide 20 mmol/L (23-31); Chloride 109 mmol/L (98-107); Estimated GFR-MDRD 73; Glucose 84 mg/dL (83-110); Sodium 139 mmol/L (136-145)
[2018-11-28] MEDS ORDERED: Ferrous Sulfate 325 MG TAB PO SCH (08:00)
[2018-11-28] MEDS ORDERED: Tamsulosin HCl 0.4 MG CAP PO SCH (09:00)
[2018-11-28] MEDS ORDERED: Docusate 100 MG CAP PO SCH (09:00)
[2018-11-28] MEDS ORDERED: Dutasteride 0.5 MG CAP PO SCH (09:00)
--- NOTE | 2018-11-28 10:21 | MRI ---
MRI brain noncontrast HISTORY: TIA. Weakness. COMPARISON: 08/11/2018. FINDINGS: There is no evidence of acute intracranial hemorrhage or infarct. Prominent diffuse cortica l atrophy, chronic ischemic small vessel disease, and old right occipital lobe infarct appears stable. There is no mass effect or shift of midline structures. Appropriate flow voids within the lar ge arterial vessels. Chronic mucosal thickening left mastoid air cells. IMPRESSION: Prominent atrophy and other chronic-type findings are stable. No acute intracranial abnor malities are demonstrated.
[2018-11-28] MEDS: Famotidine 20 MG TAB PO SCH (12:00)
--- NOTE | 2018-11-28 14:36 | DIS ---
DATE OF ADMISSION: 11/27/2018 DATE OF DISCHARGE: 11/28/2018 DISCHARGE DIAGNOSES: 1. Generalized weakness, multifactorial. 2. Dehydration, improved. 3. Acute kidney injury on chronic kidney disease, stage 3, improved. 4. Hypertension, stable. 5. Dementia, advanced. CONSULTATIONS: None. PERTINENT LABORATORY AND X-RAY FINDINGS: Creatinine ranged between 0.99 to 1.44. Estimated GFR ranged between 47 to 73. Magnesium level 1.9. Troponin I negative x3. CBC showed hemoglobin ranging between 13.5 to 14.4. Urinalysis negative. Stool Hemoccult negative x1 on 11/27/2018. CT of the brain without contrast dated 11/27/2018, showed no acute intracranial process. Chronic small vessel ischemic changes noted. Moderate diffuse cerebral volume loss. Portable chest x-ray dated 11/27/2018, showed no acute cardiopulmonary process. MRI of the brain dated 11/28/2018, showed prominent atrophy and chronic changes without acute process. HOSPITAL COURSE: The patient was observed on the Stroke Unit after initially presenting with generalized weakness and concern for TIA versus CVA. The patient underwent general stroke protocol including neuroimaging with CT and MRI modalities showing no acute process. The patient underwent general metabolic screening showing evidence of acute kidney injury and received IV fluids. The patient was also encouraged on increased intake of free water and stabilized with volume replacement. The patient was ruled out for an acute CVA and overall returned to baseline functional status prior to discharge. The patient did ambulate with Physical Therapy Service during his hospital course with recommendations for ongoing physical therapy with Home [facility] after discharge. I have examined the patient at the time of discharge and discussed followup instructions. Family verbalized understanding and in agreement and ready for discharge on 11/28/2018. DISCHARGE MEDICATIONS: 1. Enteric-coated aspirin 81 mg p.o. at bedtime. 2. Cetirizine 10 mg p.o. at bedtime. 3. Vitamin D3 of 1000 units p.o. daily. 4. Docusate 100 mg p.o. daily. 5. Aricept 5 mg p.o. at bedtime. 6. Dutasteride 0.5 mg p.o. daily. 7. Ferrous sulfate 325 mg p.o. daily. 8. Lorazepam 0.5 mg p.o. b.i.d. p.r.n. 9. Meloxicam 7.5 mg p.o. daily. 10. Memantine 10 mg p.o. b.i.d.. 11. [place]-3 fatty acids 1 capsule p.o. daily. 12. Tamsulosin 0.4 mg p.o. daily. FOLLOWUP: The patient may follow up with Selin De Paz within 7 days of discharge. CONDITION ON DISCHARGE: Fair. ACTIVITY: Rolling walker with ambulation with fall risk precautions. DIET: Heart healthy. CODE STATUS: Full. DISPOSITION: Home with [facility] including physical therapy on 11/28/2018. Job ID: [id number]
[2018-11-28 18:37] VITALS: BP 125/66
== END 2018-11-28 16:53 | disposition home health service (06) ==
LOC: ERS 12:01 → 2SW 17:57 → 2SE 11-28 08:35
PROVIDERS: ADMIT Internal Medicine; ATTEND Internal Medicine
DX: E86.0 Dehydration (principal); N17.9 Acute kidney failure, unspecified; I12.9 Hypertensive chronic kidney disease with stage 1 through stage 4 chronic kidney disease, or unspecified chronic kidney disease; N18.3 Chronic kidney disease, stage 3 (moderate); I69.398 Other sequelae of cerebral infarction; H54.62 Unqualified visual loss, left eye, normal vision right eye; F03.90 Unspecified dementia, unspecified severity, without behavioral disturbance, psychotic disturbance, mood disturbance, and anxiety; N40.0 Benign prostatic hyperplasia without lower urinary tract symptoms; I70.0 Atherosclerosis of aorta; Z79.1 Long term (current) use of non-steroidal anti-inflammatories (NSAID); Z79.82 Long term (current) use of aspirin; Z79.899 Other long term (current) drug therapy
CPT/HCPCS: 36415; 36416; 70450; 70551; 71045; 80048; 80053; 81001; 82274; 83735; 84484; 85025; 93005; 93306; 94760; 96360; 96361; G0378